=== PATIENT | male | born 1955 | race Caucasian/White ===

== ENCOUNTER 2024-10-11 14:43 | Emergency (ER) | payer OTHER, SELFPAY ==
--- NOTE | ~2024-10-11 | XR_ITS ---
EXAMINATION: XR chest 1V DATE: 10/11/2024 16:49 INDICATION: Cough. TECHNIQUE: A single frontal view of the chest was obtained. COMPARISON: None. FINDINGS: There is volume loss of right hemithorax with surgical clips at the right hilum, likely fro m prior lobectomy. No pleural effusion or pneumothorax. The heart size is normal. IMPRESSION: 1. Volume loss of right hemithorax with surgical changes, likely a lobectomy. Reviewed, dictated and finalized at location A. PREVENTION LEADER
[2024-10-11 14:49] VITALS: BP 127/69; PULSE 92; RESP 16; TEMP 36.8; O2SAT 96
--- NOTE | 2024-10-11 16:03 | ED.GENADULT ---
HPI - General Adult General Chief complaint: Weakness <Lorraine Salcedo, PANEL MACHINE TENDER - Last Filed: 10/11/24 16:12> Stated complaint: not feeling good <Lorraine Nicolas December, PANEL MACHINE TENDER - Last Filed: 10/11/24 16:12> Time Seen by Provider: 10/11/24 16:03 <Lorraine Salcedo PANEL MACHINE TENDER - Last Filed: 10/11/24 16:12> Focused HPI: Cortez Beaver is a 69 y/o male with PMhx of frontotemporal lobe dementia and lives with his who cares for him, he usually needs help with all ADLS. Daughter brings him in today with reports that he has not been eating or drinking for 3 days, increased fatigue, falling asleep easily, he stopped taking his medications and they have noticed a new cough. GENERAL: in no acute distress, disheveled HEAD: Normocephalic, atraumatic. CHEST:coarse lung sounds more on the left side ?No respiratory distress. HEART: Regular rate and rhythm.? NEURO: ?at his baseline oriented to self / place Patient screened in triage and initial orders placed.? ?Additional care and disposition to be based upon?diagnostic testing and treatment. <Lorraine Nicolas December, PANEL MACHINE TENDER - Last Filed: 10/11/24 16:12> History of Present Illness HPI narrative: Agree with HPI. Decreased oral intake over last 3 days was been having cough over the last week. is also sick and is suspected she may have influenza. Patient is typically not much for talk her and is not particularly cooperative with history. Patient's daughter provides history for patient. The patient typically gets his care at the [place]. <Artur Felix MD - Last Filed: 10/11/24 20:21> Review of Systems Review of Systems: ROS unobtainable: Yes unobtainable due to mental status <Artur Felix MD - Last Filed: 10/11/24 20:21> [facility] Past Medical History Medical History: Medical History (Updated 10/11/24 @ 20:17 by Artur Felix MD) Frontotemporal dementia <Lorraine Salcedo PANEL MACHINE TENDER - Last Filed: 10/11/24 16:12> Surgical History Surgical History: Surgical History (Updated 10/11/24 @ 20:15 by Artur Felix MD) History of lobectomy of lung partial/right <Lorraine Salcedo APRN - Last Filed: 10/11/24 16:12> Exam Narrative: GENERAL: Chronically ill-appearing, well-nourished, and in no acute distress. HEAD: Normocephalic, atraumatic. ENT: Mucous membranes moist. Eyeglasses digging into the bridge of the nose without laceration. No bone exposure. CHEST: Basilar rhonchi that clears with coughing. No respiratory distress. HEART: Regular rate and rhythm. Normal peripheral pulses. EXTREMITIES: Normal range of motion. No edema. SKIN: Warm, dry, no rash. NEURO: Awake alert and at neurologic baseline. PSYCH: Normal mood and affect. <Artur Felix MD - Last Filed: 10/11/24 20:21> Course Course Emergency Course: Patient received breathing treatment as well as IV fluid. We have discussed the lab work with his family member. Mild dehydration and positive flu. Appropriate for discharge home. Will provide albuterol to help with cough. <Artur Felix MD - Last Filed: 10/11/24 20:21> Vital Signs Vital signs: Vital Signs Temperature 98.3 F 10/11/24 14:49 Pulse Rate 92 10/11/24 14:49 Respiratory Rate 16 10/11/24 14:49 Blood Pressure 127/69 10/11/24 14:49 Pulse Oximetry 96 10/11/24 14:49 Oxygen Delivery Room Air 10/11/24 14:49 Temperature 98.3 F 10/11/24 14:49 Pulse Rate 74 10/11/24 20:02 Respiratory Rate 20 10/11/24 20:02 Blood Pressure 127/69 10/11/24 14:49 Pulse Oximetry 96 10/11/24 14:49 Oxygen Delivery Room Air 10/11/24 14:49 <Lorraine Salcedo APRN - Last Filed: 10/11/24 16:12> Vital Signs Temperature 98.3 F 10/11/24 14:49 Pulse Rate 92 10/11/24 14:49 Respiratory Rate 16 10/11/24 14:49 Blood Pressure 127/69 10/11/24 14:49 Pulse Oximetry 96 10/11/24 14:49 Oxygen Delivery Room Air 10/11/24 14:49 Temperature 98.3 F 10/11/24 14:49 Pulse Rate 74 10/11/24 20:02 Respiratory Rate 20 10/11/24 20:02 Blood Pressure 127/69 10/11/24 14:49 Pulse Oximetry 96 10/11/24 14:49 Oxygen Delivery Room Air 10/11/24 14:49 <Artur Felix MD - Last Filed: 10/11/24 20:21> Medical Decision Making Vital Signs Vital Signs: Vital Signs Temperature 98.3 F 10/11/24 14:49 Pulse Rate 92 10/11/24 14:49 Respiratory Rate 16 10/11/24 14:49 Blood Pressure 127/69 10/11/24 14:49 Pulse Oximetry 96 10/11/24 14:49 Oxygen Delivery Room Air 10/11/24 14:49 Temperature 98.3 F 10/11/24 14:49 Pulse Rate 74 10/11/24 20:02 Respiratory Rate 20 10/11/24 20:02 Blood Pressure 127/69 10/11/24 14:49 Pulse Oximetry 96 10/11/24 14:49 Oxygen Delivery Room Air 10/11/24 14:49 <Lorraine Salcedo, PANEL MACHINE TENDER - Last Filed: 10/11/24 16:12> Vital Signs Temperature 98.3 F 10/11/24 14:49 Pulse Rate 92 10/11/24 14:49 Respiratory Rate 16 10/11/24 14:49 Blood Pressure 127/69 10/11/24 14:49 Pulse Oximetry 96 10/11/24 14:49 Oxygen Delivery Room Air 10/11/24 14:49 Temperature 98.3 F 10/11/24 14:49 Pulse Rate 74 10/11/24 20:02 Respiratory Rate 20 10/11/24 20:02 Blood Pressure 127/69 10/11/24 14:49 Pulse Oximetry 96 10/11/24 14:49 Oxygen Delivery Room Air 10/11/24 14:49 <Artur Felix MD - Last Filed: 10/11/24 20:21> Lab Data Result diagrams: 10/11/24 16:27 10/11/24 16:27 <Lorraine Salcedo, PANEL MACHINE TENDER - Last Filed: 10/11/24 16:12> Labs: Lab Results 10/11/24 Range/Units 16:27 WBC 4.8 (4.5-10.0) K/mm3 RBC 5.00 (4.6-6.20) M/mm3 Hgb 15.7 (14.0-18.0) g/dL Hct 48.7 (42.0-52.0) % MCV 97.4 (80-100) fl MCH 31.4 (26-34) pg MCHC 32.2 (32-36) g/dl RDW 12.9 (11.5-14.5) % Plt Count 113 L (150-375) k/mm3 MPV 11.7 H (7.4-10.4) fl Immature Gran % (Auto) 0.0 (0-0.5) % Neut % (Auto) 73.3 H (45.5-73.1) % Lymph % (Auto) 14.3 L (18.3-44.2) % [place] % (Auto) 12.0 H (2.6-8.5) % Eos % (Auto) 0.2 (0-4.4) % Baso % (Auto) 0.2 (0.2-1.2) % Lymph # (Auto) 0.69 L (0.9-3.2) K/mm3 [place] # (Auto) 0.6 (0.1-0.6) K/mm3 Eos # (Auto) 0.0 (0-0.3) K/mm3 Baso # (Auto) 0.0 (0.0-0.1) K/mm3 Abs Immat Gran (auto) 0.00 (0.00-0.031) K/mm3 Absolute Neuts (auto) 3.5 (1.3-6.7) K/mm3 Absolute Nucleated RBC 0.000 (0.0-0.012) K/mm3 Nucleated RBC % 0.0 (0.0-0.2) % % Immature Plt Fraction 7.7 (0.9-11.2) % Sodium 145 (137-145) mmol/L Potassium 4.5 (3.4-5.0) mmol/L Chloride 106 (98-107) mmol/L Carbon Dioxide 30 (22-30) mmol/L Anion Gap 9 (4-12) mmol/L BUN 27 H (9-20) mg/dL Creatinine 0.90 (0.7-1.3) mg/dL Estim Creat Clear Calc 66 ml/min Estimated GFR > 60 (59 - ) Glucose 119 H (65-110) mg/dL Calcium 9.7 (8.4-10.2) mg/dL Total Bilirubin 1.0 (0.2-1.3) mg/dL AST 61 H (17-59) U/L ALT 35 (6-50) U/L Alkaline Phosphatase 42 (38-126) U/L Total Protein 8.0 (6.3-8.2) g/dL Albumin 4.3 (3.5-5.1) g/dL Influenza A (RT-PCR) Positive A (Negative) Influenza B (RT-PCR) Negative (Negative) RSV (RT-PCR) Negative (Negative) SARS-CoV-2 RNA (RT-PCR) Negative (Negative) <Lorraine Salcedo, PANEL MACHINE TENDER - Last Filed: 10/11/24 16:12> Lab Results 10/11/24 Range/Units 16:27 WBC 4.8 (4.5-10.0) K/mm3 RBC 5.00 (4.6-6.20) M/mm3 Hgb 15.7 (14.0-18.0) g/dL Hct 48.7 (42.0-52.0) % MCV 97.4 (80-100) fl MCH 31.4 (26-34) pg MCHC 32.2 (32-36) g/dl RDW 12.9 (11.5-14.5) % Plt Count 113 L (150-375) k/mm3 MPV 11.7 H (7.4-10.4) fl Immature Gran % (Auto) 0.0 (0-0.5) % Neut % (Auto) 73.3 H (45.5-73.1) % Lymph % (Auto) 14.3 L (18.3-44.2) % [place] % (Auto) 12.0 H (2.6-8.5) % Eos % (Auto) 0.2 (0-4.4) % Baso % (Auto) 0.2 (0.2-1.2) % Lymph # (Auto) 0.69 L (0.9-3.2) K/mm3 [place] # (Auto) 0.6 (0.1-0.6) K/mm3 Eos # (Auto) 0.0 (0-0.3) K/mm3 Baso # (Auto) 0.0 (0.0-0.1) K/mm3 Abs Immat Gran (auto) 0.00 (0.00-0.031) K/mm3 Absolute Neuts (auto) 3.5 (1.3-6.7) K/mm3 Absolute Nucleated RBC 0.000 (0.0-0.012) K/mm3 Nucleated RBC % 0.0 (0.0-0.2) % % Immature Plt Fraction 7.7 (0.9-11.2) % Sodium 145 (137-145) mmol/L Potassium 4.5 (3.4-5.0) mmol/L Chloride 106 (98-107) mmol/L Carbon Dioxide 30 (22-30) mmol/L Anion Gap 9 (4-12) mmol/L BUN 27 H (9-20) mg/dL Creatinine 0.90 (0.7-1.3) mg/dL Estim Creat Clear Calc 66 ml/min Estimated GFR > 60 (59 - ) Glucose 119 H (65-110) mg/dL Calcium 9.7 (8.4-10.2) mg/dL Total Bilirubin 1.0 (0.2-1.3) mg/dL AST 61 H (17-59) U/L ALT 35 (6-50) U/L Alkaline Phosphatase 42 (38-126) U/L Total Protein 8.0 (6.3-8.2) g/dL Albumin 4.3 (3.5-5.1) g/dL Influenza A (RT-PCR) Positive A (Negative) Influenza B (RT-PCR) Negative (Negative) RSV (RT-PCR) Negative (Negative) SARS-CoV-2 RNA (RT-PCR) Negative (Negative) <Artur Felix MD - Last Filed: 10/11/24 20:21> Imaging Data Radiologist's impression: ITS Impressions Chest X-Ray 10/11/24 16:51 IMPRESSION: 1. Volume loss of right hemithorax with surgical changes, likely a lobectomy. <Artur Felix MD - Last Filed: 10/11/24 20:21> Discharge Plan Discharge Clinical Impression: Influenza A, Dehydration <Lorraine Salcedo, PANEL MACHINE TENDER - Last Filed: 10/11/24 16:12> Patient Disposition: Home, Self-Care <Lorraine Nicolas December, Last Filed: 10/11/24 16:12> Condition: Stable <Lorraine Nicolas December, Last Filed: 10/11/24 16:12> Instructions: Dehydration (ED), Influenza (ED) <Lorraine Nicolas December, Last Filed: 10/11/24 16:12> Additional Instructions: You have influenza. It is too late to start oral treatment. Hopefully you will be over your symptoms in the next 3 days. Return the ER if you lose consciousness, you cannot keep down food or water, or you have additional concerns. <Lorraine Nicolas December, Last Filed: 10/11/24 16:12> Patient Language: Swazi <Lorraine Nicolas December, Last Filed: 10/11/24 16:12> Prescriptions: New albuterol sulfate 90 mcg/actuation HFA aerosol inhaler 4 puff inhalation QID PRN (Reason: shortness of breath or wheezing) Qty: 8.5 0RF <Lorraine Nicolas December, Last Filed: 10/11/24 16:12> Follow-up/Referrals: PHYSICIAN NOT ON STAFF,NONSTAFF [Primary Care Provider] - 1 Week <Lorraine Nicolas December, Last Filed: 10/11/24 16:12>
[2024-10-11 16:35] LABS: Basophils Percent Auto 0.2 % (0.2-1.2); Eosinophils Percent Auto 0.2 % (0-4.4); Hematocrit 48.7 % (42.0-52.0); Hemoglobin 15.7 g/dL (14.0-18.0); Immature Platelet Fraction Pct 7.7 % (0.9-11.2); Lymphocytes Absolute Auto 0.69 K/mm3 (0.9-3.2); Lymphocytes Percent Auto 14.3 % (18.3-44.2); Mean Corpuscular HGB Conc 32.2 g/dl (32-36); Mean Corpuscular Hemoglobin 31.4 pg (26-34); Mean Corpuscular Volume 97.4 fl (80-100); Mean Platelet Volume 11.7 fl (7.4-10.4); Monocytes Absolute Auto 0.6 K/mm3 (0.1-0.6); Neutrophils Absolute Auto 3.5 K/mm3 (1.3-6.7); Neutrophils Percent Auto 73.3 % (45.5-73.1); Platelet Count Result 113 k/mm3 (150-375); Red Cell Distribution Width 12.9 % (11.5-14.5); White Blood Count 4.8 K/mm3 (4.5-10.0)
[2024-10-11 16:42] LABS: Alanine Aminotransferase 35 U/L (6-50); Albumin Level 4.3 g/dL (3.5-5.1); Alkaline Phosphatase 42 U/L (38-126); Anion Gap 9 mmol/L (4-12); Aspartate Amino Transferase 61 U/L (17-59); Blood Urea Nitrogen 27 mg/dL (9-20); Calcium 9.7 mg/dL (8.4-10.2); Carbon Dioxide 30 mmol/L (22-30); Chloride 106 mmol/L (98-107); Estimated CRCL calculation 66 ml/min; Estimated Glomerular Filt Rate > 60; Glucose 119 mg/dL (65-110); Potassium 4.5 mmol/L (3.4-5.0); Sodium 145 mmol/L (137-145)
[2024-10-11 17:09] LABS: Influenza A QL RT-PCR Positive (Negative); Influenza B QL RT-PCR Negative (Negative); RSV RNA, RT-PCR Negative (Negative); SARS-CoV-2 RNA PCR Negative (Negative)
--- NOTE | 2024-10-11 19:48 | PC.NURSE ---
patient is not allowing placement of telemetry leads, blood pressure cuff, and pulse ox on. patient was accepting to iv placement for iv fluids
[2024-10-11] MEDS: IPRATROPIUM 0.5 MG/ALBUTEROL SULFATE 2.5 MG AMPUL.NEB 3 ML INHALATION (19:55)
[2024-10-11 19:56] VITALS: PULSE 71; RESP 18
[2024-10-11] MEDS: SODIUM CHLORIDE 0.9% IV 1,000 ML 999 ML IV CONT (19:59)
[2024-10-11 20:02] VITALS: PULSE 74; RESP 20
== END 2024-10-11 21:55 | disposition home or self-care (01) ==
PROVIDERS: Nurse Practitioner Family; Emergency Provider Emergency Medicine
DX: J10.1 Influenza due to other identified influenza virus with other respiratory manifestations (principal); E86.0 Dehydration; Z20.822 Contact with and (suspected) exposure to COVID-19; G31.09 Other frontotemporal neurocognitive disorder; F02.80 Dementia in other diseases classified elsewhere, unspecified severity, without behavioral disturbance, psychotic disturbance, mood disturbance, and anxiety; Z90.2 Acquired absence of lung [part of]
CPT/HCPCS: 36415; 71045; 80053; 85025; 85055; 87637; 94640; 96360; 96361; 99283; J7030

== ENCOUNTER 2025-04-23 19:52 | Emergency (ER) | payer OTHER, SELFPAY ==
[2025-04-23 19:54] VITALS: BP 131/65; PULSE 79; RESP 16; TEMP 36.9; O2SAT 99
--- NOTE | 2025-04-23 20:13 | ED_ITS ---
HPI - General Adult General Chief complaint: Unspecified Stated complaint: EYEGLASSES INBEDDED IN HIS FACE 2-3 CM History of Present Illness HPI narrative: This is a 70-year-old male with frontotemporal dementia presenting for imbedded glasses. Patient's glasses have become imbedded in the bridge of his nose. This is an ongoing problem for the last year and a half. Family has been able to remove them in the past but this time they are completely imbedded the patient will not let them touch chin. Patient has significant dementia but has no complaints this time. Related Data Allergies Allergy/AdvReac Type Severity Reaction Status Date / Time No Known Allergies Allergy Verified 10/11/24 21:23 [facility] Past Medical History Medical History (Updated 04/23/25 @ 20:16 by Vega Sanchez MD) Frontotemporal dementia Surgical History Surgical History (Updated 10/11/24 @ 20:15 by Artur Felix MD) History of lobectomy of lung partial/right Exam Narrative: APPEARANCE: No apparent distress. Head: atraumatic. EYES: EOMI, NOSE: The bridge of the patient's glasses are imbedded in the patient's nose. No surrounding signs of infection. NECK: Trachea midline RESPIRATORY: No increased rate of breathing CARDIOVASCULAR: RRR, ABDOMINAL: Non-distended MUSCULOSKELETAl: No obvious deformities NEURO: Alert. Moving 4/4 extremities SKIN:: Warm, dry. Normal color PSYCHIATRIC: Normal affect Course Vital Signs Vital signs: Vital Signs Temperature 98.4 F 04/23/25 19:54 Pulse Rate 79 04/23/25 19:54 Respiratory Rate 16 04/23/25 19:54 Blood Pressure 131/65 04/23/25 19:54 Pulse Oximetry 99 04/23/25 19:54 Oxygen Delivery Room Air 04/23/25 19:54 Temperature 98.4 F 04/23/25 19:54 Pulse Rate 79 04/23/25 19:54 Respiratory Rate 16 04/23/25 19:54 Blood Pressure 131/65 04/23/25 19:54 Pulse Oximetry 99 04/23/25 19:54 Oxygen Delivery Room Air 04/23/25 19:54 Medical Decision Making MDM Narrative Medical decision making narrative: -Course: 70-year-old male presenting with his glasses imbedded in the skin of his nose. This is a chronic problem. Vital signs are stable. No signs of infection. Patient will be referred to an ENT for further management. Vital Signs Vital Signs: Vital Signs Temperature 98.4 F 04/23/25 19:54 Pulse Rate 79 04/23/25 19:54 Respiratory Rate 16 04/23/25 19:54 Blood Pressure 131/65 04/23/25 19:54 Pulse Oximetry 99 04/23/25 19:54 Oxygen Delivery Room Air 04/23/25 19:54 Temperature 98.4 F 04/23/25 19:54 Pulse Rate 79 04/23/25 19:54 Respiratory Rate 16 04/23/25 19:54 Blood Pressure 131/65 04/23/25 19:54 Pulse Oximetry 99 04/23/25 19:54 Oxygen Delivery Room Air 04/23/25 19:54 Discharge Plan Discharge Clinical Impression: Foreign body (FB) in soft tissue Patient Disposition: Home Condition: Stable Instructions: Antibiotic Form Additional Instructions: Please call the ENT listed below for further management. Return if he develops any new or worsening symptoms. Patient Language: Mauritanian Prescriptions: No Action albuterol sulfate 90 mcg/actuation HFA aerosol inhaler 4 puff inhalation QID PRN (Reason: shortness of breath or wheezing) Qty: 8.5 0RF Follow-up/Referrals: Dick Hicks MD [Physician, Ear, Nose, Throat] - 1 Day Referral Note: Embedded glasses in nose PHYSICIAN NOT ON STAFF,NONSTAFF [Primary Care Provider]
[2025-04-23 21:38] VITALS: BP 142/74; PULSE 69; RESP 18; TEMP 36.9; O2SAT 97
== END 2025-04-23 21:39 | disposition home or self-care (01) ==
PROVIDERS: Emergency Provider Emergency Medicine
DX: M79.5 Residual foreign body in soft tissue (principal); F03.90 Unspecified dementia, unspecified severity, without behavioral disturbance, psychotic disturbance, mood disturbance, and anxiety; W45.8XXA Other foreign body or object entering through skin, initial encounter
CPT/HCPCS: 99281